=== PATIENT | female | born 1995 | race Two or more races ===

== ENCOUNTER 2021-01-10 11:43 | Outpatient (CLI) | payer OTHER | END 2021-01-10 13:11 | disposition home or self-care (01) | LOC: OFIC 805 11:43 | PROVIDERS: ATTEND Otolaryngology Otology & Neurotology | DX: J30.89 Other allergic rhinitis (principal); R09.81 Nasal congestion; R09.82 Postnasal drip; H61.23 Impacted cerumen, bilateral ==